=== PATIENT | male | born 1965 | race Caucasian/White ===

== ENCOUNTER → 2017-03-28 | Outpatient (CLI) | payer OTHER ==
[~2017-03-28] MED LIST: NORTRIPTYLINE H10 M2 PO
== END ==
LOC: CAT
DX: I71.2 Thoracic aortic aneurysm, without rupture (principal)

== ENCOUNTER 2017-04-03 05:19 | Inpatient (IN) | payer OTHER ==
[2017-03-28 10:31] LABS: HEMATOCRIT 43.9 % (42.0-52.0); HEMOGLOBIN 15.5 gm/dL (14.0-18.0); MCH 30.4 pg (26.0-34.0); MCHC 35.4 g/dL (28.0-37.0); MCV 85.9 fL (80.0-100.0); RBC 5.11 mil/uL (4.50-6.00); RDW 13.1 % (10.5-14.5); WBC 7.1 thou/uL (4.0-11.0)
[2017-03-28 10:40] LABS: CALCIUM 9.2 mg/dL (8.5-10.1); CREATININE 0.9 mg/dL (0.7-1.3); POTASSIUM 4.1 mmol/L (3.5-5.1)
[2017-03-28 10:42] LABS: URINE BILIRUBIN NEGATIVE (Negative); URINE BLOOD TRACE (Negative); URINE COLOR YELLOW; URINE GLUCOSE-RANDOM* NEGATIVE (Negative); URINE KETONES NEGATIVE (Negative); URINE LEUKOCYTES-REFLEX NEGATIVE (Negative); URINE PROTEIN (DIPSTICK) NEGATIVE (Negative); URINE SPECIFIC GRAVITY <= 1.005 (1.003-1.035); URINE UROBILINOGEN 0.2 E.U./dl (0.2-1.0)
[2017-03-28 10:44] LABS: INR 1.1; PROTIME 11.1 Seconds (9.3-11.4)
[~2017-04-03] VITALS: Ht 160 cm; Wt 74.0 kg
--- NOTE | ~2017-04-03 | O ---
[facility] [place] [address] OPERATIVE REPORT Name: BRITTNEY WILSON Room #: 214-P [facility] IN M.R.#: [id number] Admission: 04/03/17 Attend Phys: Mauro Bradshaw MD Discharge: 04/08/17 Date of : 61 Report #: [id number] THIS REPORT FOR: //name// CC: Ashok Bradshaw DATE OF SERVICE: 04/03/2017 PREOPERATIVE DIAGNOSES: 1. Aortic valve insufficiency, severe, symptomatic. 2. Ascending thoracic aortic aneurysm, aortic root aneurysm. FINAL DIAGNOSES: 1. Aortic valve insufficiency, severe, symptomatic. 2. Ascending thoracic aortic aneurysm, aortic root aneurysm. OPERATIVE PROCEDURES PERFORMED: 1. Aortic root replacement with a 29 mm mechanical valve conduit, utilizing a Bentall technique. 2. Right femoral artery exploration. SURGEON: aMuro Bradshaw MD DIRECTOR OF STRATEGIC ALLIANCES: Mirna Cheney. ANESTHESIA: General. OPERATIVE INDICATIONS: The patient is a 52-year-old male who has presented with dyspnea on exertion. On his evaluation, he was noted to have a murmur and further evaluation showed evidence of severe aortic valve insufficiency. Left heart catheterization demonstrated normal coronaries. CT imaging of his chest demonstrated about 4.5 cm ascending aortic aneurysm that involve the root. The patient is admitted at this time now and brought to the operating room for aortic valve replacement and concomitant repair of his ascending and aortic root aneurysm. OPERATIVE SUMMARY: The patient was brought into the operating room, placed on the OR table in supine position. After anesthesia was induced via the general endotracheal route and monitoring lines had been positioned, the patient was prepped and draped in sterile fashion with chlorhexidine. A median sternotomy incision was made. We opened the pericardium and systemically anticoagulated the patient with heparin. The distal aorta was dissected free from surrounding tissue. We mobilized the pericardium off of the aorta. We found that the aneurysm tapered just before the innominate artery and I felt that we could sew our graft on the distal ascending aorta. I therefore performed an oblique [facility] [address] [place] [address] OPERATIVE REPORT Name: BRITTNEY WILSON Room #: 214-P [facility] IN ..#: [id number] Admission: 04/03/17 Attend Phys: Mauro Bradshaw MD Discharge: 04/08/17 Date of : 61 Report #: [id number] incision in the right groin and dissected downward to expose the right common femoral artery. The patient was given a systemic dose of heparin, placed a 22-Yoruba cannula in the right common femoral artery and connected to the cardiopulmonary bypass line. We then placed a venous cannula in the right atrium. An antegrade cardioplegia needle was placed in the ascending aorta and cardiopulmonary bypass was begun. A retrograde cardioplegic cannula was positioned into the coronary sinus and a left ventricular vent was placed in the right superior pulmonary vein. Under low flow conditions, the aorta was crossclamped and arrest was achieved with retrograde cardioplegia. We opened the aorta and exposed the coronary ostium. We also gave antegrade cardioplegia at this time as well. The ascending aorta was excised. We amputated just proximal to the crossclamp distally. Proximally, we dissected down to the aortic root and dissected the right and left coronary buttons from surrounding tissue. We sized the valve and selected a 29 mm mechanical valve conduit. Sutures of 2-0 pledgeted Ethibond were placed from the aortic to the ventricular side of the annulus circumferentially. These sutures were brought up through the sewing rim of the valve conduit. The valve conduit was seated and the sutures were securely tied. We reinforced this layer with BioGlue. Next, using an eye cautery, we made a hole in the graft for anastomosing the left coronary button. This button was anastomosed with 5-0 Prolene and the site was reinforced with BioGlue. We then measured the graft to the appropriate length, cut it distally and constructed our distal anastomosis of the graft to the ascending aorta distally with 4-0 Prolene as well. The antegrade plegia needle was then reinserted into the graft. Lastly, we chose a spot for the right coronary button, made appropriate graftotomy at this site and then constructed the anastomosis of the right button to the graft with 5-0 Prolene. Upon completion of this, we placed the patient in steep Trendelenburg. We gave warm cardioplegia both retrograde and antegrade and de-aired the heart through the left ventricular apex while holding blood in the heart and ventilating the lungs Under low flow conditions, the aortic crossclamp was released to begin the period of reperfusion and further de-airing maneuvers were further completed. The patient was rewarmed to 37 degree centigrade. Atrial and ventricular pacing wires were placed. Defibrillation was required and the patient returned to a sinus bradycardia of about 60 and we paced him at a rate of 80. Three successive doses of calcium and a single dose of magnesium were given over 3-5 minute intervals. After a suitable period of reperfusion, the lungs were reinflated. The patient was weaned from cardiopulmonary bypass without inotropic support. Protamine was given to reverse the heparin, decannulation was effected. Once satisfactory hemostasis was achieved, we placed two 32-Yoruba chest tubes in the anterior mediastinum and brought them out through separate stab incisions. The sternum was closed with #7 wire. The fascia, subcutaneous and skin were closed in multiple layers with absorbable suture. The procedure was completed. The patient was taken to the CVICU in [facility] [address] [place] [address] OPERATIVE REPORT Name: BRITTNEY WILSON Room #: 214-P [facility] IN M.R.#: [id number] Admission: 04/03/17 Attend Phys: Mauro Bradshaw MD Discharge: 04/08/17 Date of : 61 Report #: [id number] condition. Cardiopulmonary bypass time and crossclamp time are not available to me at the time of this dictation. <ELECTRONICALLY SIGNED> By: Mauro Bradshaw MD 04/13/17 1750 1519 1630 Mauro Bradshaw MD /nt
--- NOTE | ~2017-04-03 | EKG ---
[address] [address] [place] [address] ELECTROCARDIOGRAM REPORT Name: BRITTNEY WILSON Room #: PRE IN [facility]#: [id number] Admission: Attend Phys: Mauro Bradshaw MD Discharge: Date of : 61 Report #: [id number] THIS REPORT FOR: //name// [facility] Test Date: 2017-03-28 Test Time: 10:22:08 Pat Name: BRITTNEY WILSON Department: Room: Gender: [employer] Manager: SAMMIE RHOADES : 1965 Requested By: Mauro Bradshaw Order Number: [id number] MD: Measurements Intervals [place] Rate: 66 P: 69 [place]: 198 QRS: 76 QRSD: 102 T: -57 QT: 410 QTc: 430 Interpretive Statements Sinus rhythm Consider right atrial enlargement Probable LVH with secondary repol abnrm No previous ECG available for comparison [email or web address] By: 1022 1022 Epiphany MD Marion /EPI
--- NOTE | ~2017-04-03 | S ---
[facility] [place] [address] SURGICAL PATH RPT PROCEDURE Name: BRITTNEY PAT Room #: 214-P ADM IN M.R.#: [id number] Admission: 04/03/17 Date of : 61 Discharge: Report #: [id number] Path Case #: [id number] PATHOLOGY REPORT COLLECTION DATE: 04/03/2017 RECEIVED DATE: 04/03/2017 SUBMITTING PHYS: Dr. Mauro Bradshaw OTHER PHYS: Dr. April Dean SPECIMEN(S) RECEIVED: A.Aortic valve leaflets B.Segment of thoracic aorta * * * * * * * * * * * * FINAL DIAGNOSIS: A. Aortic valve leaflets, repair: - Calcific sclerosis along with myxoid changes. B. Aorta, segment of thoracic aorta, repair: - Reactive changes including inflammation, fibrinoid degeration and myxoid degeration. PATHOLOGIST: Vida Menezes M.D. REPORT ELECTRONICALLY SIGNED BY: Vida Menezes M.D. DATE/TIME: 04/05/2017 15:38 * * * * * * * * * * * * GROSS PATHOLOGY: A. The specimen is received in formalin, labeled "Brittney Pat and aortic valve leaflets", are two glistening riddle yellow leaflets 4.1 x 1.8 centimeters and 3.1 x 1.3 cm containing several calcified nodules. Director Of Public Works sections in A1 after decalcification. B. The specimen is received in formalin, labeled "Brittney Prickette and segment of thoracic aorta", are two segments of apparent placental the largest ranging from 1.2 up to 4.0 cm in length and 3.7 cm in in diameter with a 0.2 cm wall and in the other 3.5 x 3.0 with a 0.2 cm wall. The intima shows yellow lipid streak. Director Of Public Works sections in B1. (SWS; 04/03/2017) CLINICAL HISTORY: Aortic valve stenosis INITIAL CPT CODE(S): A; 74691, 50191 B; 26903 Professional services performed by [facility] at [facility] [address] [place] [address] SURGICAL PATH RPT PROCEDURE Name: BRITTNEY PAT Room #: 214-P ADM IN M.R.#: [id number] Admission: 04/03/17 Date of : 61 Discharge: Report #: [id number] Path Case #: [id number] , [place] [address] Technical services performed by [employer] at [address] [place] [address], [address], [place] [address]. [facility] [address] [place] [address] PHONE: [phone] DIRECTOR: Fernandez Vitale M.D. * * * END OF REPORT * * *
--- NOTE | ~2017-04-03 | EKG ---
[address] [address] ELECTROCARDIOGRAM REPORT Name: BRITTNEY WILSON Room #: 239-P ADM IN M.R.#: [id number] Admission: 04/03/17 Attend Phys: Mauro Bradshaw MD Discharge: Date of : 61 Report #: [id number] THIS REPORT FOR: //name// [facility] Test Date: 2017-04-04 Test Time: 06:38:32 Pat Name: BRITTNEY WILSON Department: Room: 239 P Gender: M Greensman: HASEEB : 1965 Requested By: Unique Bledsoe Order Number: [id number] MD: Melvin Smith Measurements Intervals [place] Rate: 69 P: 69 MA: 195 QRS: -13 QRSD: 128 T: 71 QT: 458 QTc: 491 Interpretive Statements Sinus rhythm Left bundle branch block Compared to ECG 03/28/2017 10:22:08 Left bundle branch block is now present Electronically Signed On 04-04-2017 8:17:51 CDT by Melvin Smith [email or web address] <ELECTRONICALLY SIGNED> By: Melvin Smith MD, [facility] 04/04/1717 7 7 Melvin Smith MD, [facility] /EPI
[2017-04-03 07:34] VITALS: BP 147/80
[2017-04-03 12:17] LABS: HEMATOCRIT 32.1 % (42.0-52.0); HEMOGLOBIN 11.3 gm/dL (14.0-18.0); MCH 30.5 pg (26.0-34.0); MCV 87.2 fL (80.0-100.0); RBC 3.69 mil/uL (4.50-6.00); RDW 13.1 % (10.5-14.5); WBC 17.1 thou/uL (4.0-11.0)
[2017-04-03 12:31] LABS: APTT 26.1 Seconds (24.5-32.8); FIBRINOGEN 119.1 mg/dL (210-360); INR 1.5; PROTIME 15.2 Seconds (9.3-11.4)
[2017-04-03 13:17] LABS: POC BE -4 mmol/L (-2.0 to +3.0); POC CA IONIZED 4.2 mg/dL (4.5-5.3); POC FiO2 70 %; POC GLUCOSE 132 mg/dL (70-99); POC HEMOGLOBIN 11.9 g/dL (14.0-18.0); POC POTASSIUM 5.7 mmol/L (3.5-5.1); POC SODIUM 132 mmol/L (136-145); POC pCO2 36.2 mmHg (35.0-45.0); POC pH 7.371 (7.360-7.450)
[2017-04-03 13:17] LABS: POC BE -1 mmol/L (-2.0 to +3.0); POC CA IONIZED 4.8 mg/dL (4.5-5.3); POC FiO2 100 %; POC GLUCOSE 129 mg/dL (70-99); POC HCO3 23.7 mmol/L (22.0-26.0); POC HEMOGLOBIN 12.9 g/dL (14.0-18.0); POC POTASSIUM 5.3 mmol/L (3.5-5.1); POC SODIUM 135 mmol/L (136-145); POC pCO2 37.2 mmHg (35.0-45.0); POC pH 7.413 (7.360-7.450)
[2017-04-03 13:17] LABS: POC BE 0 mmol/L (-2.0 to +3.0); POC CA IONIZED 4.8 mg/dL (4.5-5.3); POC FiO2 100 %; POC GLUCOSE 166 mg/dL (70-99); POC HCO3 25.2 mmol/L (22.0-26.0); POC HEMOGLOBIN 12.9 g/dL (14.0-18.0); POC POTASSIUM 5.7 mmol/L (3.5-5.1); POC SODIUM 135 mmol/L (136-145); POC pCO2 44.8 mmHg (35.0-45.0); POC pH 7.358 (7.360-7.450)
[2017-04-03 13:17] LABS: POC BE -5 mmol/L (-2.0 to +3.0); POC CA IONIZED 4.1 mg/dL (4.5-5.3); POC FiO2 100 %; POC GLUCOSE 140 mg/dL (70-99); POC HCO3 21.3 mmol/L (22.0-26.0); POC HEMOGLOBIN 11.2 g/dL (14.0-18.0); POC SODIUM 132 mmol/L (136-145); POC pCO2 41.5 mmHg (35.0-45.0); POC pH 7.319 (7.360-7.450)
[2017-04-03 13:17] LABS: POC BE -1 mmol/L (-2.0 to +3.0); POC CA IONIZED 4.1 mg/dL (4.5-5.3); POC FiO2 100 %; POC GLUCOSE 142 mg/dL (70-99); POC HCO3 24.5 mmol/L (22.0-26.0); POC HEMOGLOBIN 10.9 g/dL (14.0-18.0); POC POTASSIUM 5.9 mmol/L (3.5-5.1); POC SODIUM 131 mmol/L (136-145); POC pCO2 46.5 mmHg (35.0-45.0); POC pH 7.329 (7.360-7.450)
[2017-04-03 13:17] LABS: POC BE 1 mmol/L (-2.0 to +3.0); POC CA IONIZED 3.9 mg/dL (4.5-5.3); POC FiO2 100 %; POC GLUCOSE 113 mg/dL (70-99); POC HEMOGLOBIN 10.5 g/dL (14.0-18.0); POC POTASSIUM 5.3 mmol/L (3.5-5.1); POC SODIUM 131 mmol/L (136-145); POC pCO2 41.2 mmHg (35.0-45.0); POC pH 7.408 (7.360-7.450)
[2017-04-03 13:17] LABS: POC BE -1 mmol/L (-2.0 to +3.0); POC CA IONIZED 4.2 mg/dL (4.5-5.3); POC FiO2 80 %; POC GLUCOSE 146 mg/dL (70-99); POC HCO3 24.5 mmol/L (22.0-26.0); POC HEMOGLOBIN 11.9 g/dL (14.0-18.0); POC POTASSIUM 6.2 mmol/L (3.5-5.1); POC SODIUM 133 mmol/L (136-145); POC pCO2 45.3 mmHg (35.0-45.0)
[2017-04-03 13:22] LABS: POC BE -2 mmol/L (-2.0 to +3.0); POC CA IONIZED > 8.9 mg/dL (4.5-5.3); POC FiO2 100 %; POC GLUCOSE 122 mg/dL (70-99); POC HCO3 22.9 mmol/L (22.0-26.0); POC HEMOGLOBIN 9.9 g/dL (14.0-18.0); POC POTASSIUM 4.7 mmol/L (3.5-5.1); POC SODIUM 126 mmol/L (136-145); POC pCO2 38.1 mmHg (35.0-45.0); POC pH 7.388 (7.360-7.450)
[2017-04-03 13:22] LABS: POC BE -1 mmol/L (-2.0 to +3.0); POC CA IONIZED 4.2 mg/dL (4.5-5.3); POC FiO2 80 %; POC GLUCOSE 148 mg/dL (70-99); POC HCO3 24.9 mmol/L (22.0-26.0); POC HEMOGLOBIN 10.9 g/dL (14.0-18.0); POC POTASSIUM 6.7 mmol/L (3.5-5.1); POC SODIUM 133 mmol/L (136-145); POC pCO2 45.6 mmHg (35.0-45.0); POC pH 7.345 (7.360-7.450)
[2017-04-03 13:22] LABS: POC BE -2 mmol/L (-2.0 to +3.0); POC CA IONIZED 6.3 mg/dL (4.5-5.3); POC FiO2 100 %; POC GLUCOSE 134 mg/dL (70-99); POC HCO3 22.9 mmol/L (22.0-26.0); POC HEMOGLOBIN 11.2 g/dL (14.0-18.0); POC POTASSIUM 3.9 mmol/L (3.5-5.1); POC SODIUM 136 mmol/L (136-145); POC pCO2 35.5 mmHg (35.0-45.0); POC pH 7.417 (7.360-7.450)
[2017-04-03 13:22] LABS: POC BE -4 mmol/L (-2.0 to +3.0); POC CA IONIZED 8.4 mg/dL (4.5-5.3); POC FiO2 100 %; POC GLUCOSE 127 mg/dL (70-99); POC HCO3 22.4 mmol/L (22.0-26.0); POC HEMOGLOBIN 10.2 g/dL (14.0-18.0); POC POTASSIUM 4.4 mmol/L (3.5-5.1); POC SODIUM 130 mmol/L (136-145); POC pCO2 43.3 mmHg (35.0-45.0); POC pH 7.321 (7.360-7.450)
[2017-04-03 13:39] LABS: ABG SAMPLE TYPE ARTERIAL; HCO3 21.8 mmol/L (22.0-26.0); LACTATE 2.08 mmol/L (0.5-2.0); O2(CT) 20.2 mL/dL (15.0-23.0); O2Hb 96.6 % (92.0-98.0); PCO2 42.5 mmHg (35.0-45.0); sO2 97.9 % (92.0-98.0); tCO2 23.1 mmol/L (24.0-30.0)
[2017-04-03 13:40] LABS: STICK SITE LINE; TIDAL VOLUME 500 ml; pH 7.328 (7.360-7.450)
[2017-04-03 13:42] VITALS: BP 127/72
[2017-04-03 13:52] LABS: HEMATOCRIT 39.8 % (42.0-52.0); MCH 29.9 pg (26.0-34.0); MCV 85.5 fL (80.0-100.0); RBC 4.65 mil/uL (4.50-6.00); RDW 13.4 % (10.5-14.5); WBC 15.2 thou/uL (4.0-11.0)
[2017-04-03 13:54] LABS: HEMOGLOBIN 13.9 gm/dL (14.0-18.0)
[2017-04-03 14:01] LABS: CALCIUM 11.5 mg/dL (8.5-10.1); CREATININE 1.3 mg/dL (0.7-1.3); MAGNESIUM 2.9 mg/dL (1.8-2.4)
[2017-04-03 14:40] LABS: APTT 29.4 Seconds (24.5-32.8); INR 1.2; PROTIME 12.5 Seconds (9.3-11.4)
[2017-04-03 15:48] LABS: ABG SAMPLE TYPE ARTERIAL; BE(vivo) -5.3 mmol/L (-2 to +3); HCO3 20.2 mmol/L (22.0-26.0); LACTATE 3.11 mmol/L (0.5-2.0); O2(CT) 21.1 mL/dL (15.0-23.0); O2Hb 96.8 % (92.0-98.0); PCO2 39.1 mmHg (35.0-45.0); PO2 111.3 mmHg (80.0-100.0); sO2 97.8 % (92.0-98.0); tCO2 21.4 mmol/L (24.0-30.0)
[2017-04-03 15:49] LABS: ABG COMMENT CPAP TRIAL.; Pressure Support 6 cm H20; STICK SITE ALINE
[2017-04-03 16:52] LABS: ABG SAMPLE TYPE ARTERIAL; BE(vivo) -7.8 mmol/L (-2 to +3); HCO3 16.9 mmol/L (22.0-26.0); O2(CT) 20.8 mL/dL (15.0-23.0); O2Hb 95.3 % (92.0-98.0); PO2 95.6 mmHg (80.0-100.0); sO2 96.9 % (92.0-98.0); tCO2 17.9 mmol/L (24.0-30.0)
[2017-04-03 16:53] LABS: LACTATE 4.27 mmol/L (0.5-2.0); STICK SITE ALINE; pH 7.328 (7.360-7.450)
[2017-04-03 20:54] LABS: HEMATOCRIT 43.2 % (42.0-52.0); HEMOGLOBIN 14.9 gm/dL (14.0-18.0); MCHC 34.5 g/dL (28.0-37.0); PLATELET COUNT 188 thou/uL (150-400); RBC 4.97 mil/uL (4.50-6.00); RDW 13.5 % (10.5-14.5); WBC 21.3 thou/uL (4.0-11.0)
[2017-04-03 20:55] LABS: MANUAL DIFF YES
[2017-04-03 21:02] LABS: CALCIUM 10.9 mg/dL (8.5-10.1); CREATININE 1.6 mg/dL (0.7-1.3); POTASSIUM 3.2 mmol/L (3.5-5.1)
[2017-04-03 21:08] LABS: FIBRINOGEN 180.9 mg/dL (210-360); INR 1.1; PROTIME 11.4 Seconds (9.3-11.4)
[2017-04-03 21:20] LABS: TOTAL CELL COUNT 100
[2017-04-03 21:21] LABS: ABSOLUTE NEUTROPHILS 19.4 thou/uL (1.4-8.2)
[2017-04-04 03:48] LABS: HEMATOCRIT 39.1 % (42.0-52.0); HEMOGLOBIN 13.5 gm/dL (14.0-18.0); MCHC 34.5 g/dL (28.0-37.0); MCV 86.8 fL (80.0-100.0); RBC 4.5 mil/uL (4.50-6.00); RDW 13.6 % (10.5-14.5); WBC 23.5 thou/uL (4.0-11.0)
[2017-04-04 03:56] LABS: CALCIUM 9.9 mg/dL (8.5-10.1); CREATININE 1.7 mg/dL (0.7-1.3); MAGNESIUM 2.5 mg/dL (1.8-2.4)
[2017-04-04 03:59] LABS: POTASSIUM 4.5 mmol/L (3.5-5.1)
[2017-04-04 05:20] LABS: ABG SAMPLE TYPE ARTERIAL; BE(vivo) -6.7 mmol/L (-2 to +3); LACTATE 2.38 mmol/L (0.5-2.0); O2(CT) 17.6 mL/dL (15.0-23.0); O2Hb 91.3 % (92.0-98.0); PCO2 33.8 mmHg (35.0-45.0); PO2 63.5 mmHg (80.0-100.0); pH 7.345 (7.360-7.450); sO2 91.4 % (92.0-98.0); tCO2 19.1 mmol/L (24.0-30.0)
[2017-04-04 05:21] LABS: STICK SITE LINE
[2017-04-04 14:46] VITALS: BP 144/88
[2017-04-04 19:58] VITALS: BP 150/90
[2017-04-05 04:53] LABS: HEMATOCRIT 33.7 % (42.0-52.0); MCH 30.1 pg (26.0-34.0); MCHC 33.9 g/dL (28.0-37.0); MCV 88.8 fL (80.0-100.0); RBC 3.79 mil/uL (4.50-6.00); RDW 13.8 % (10.5-14.5)
[2017-04-05 04:55] VITALS: BP 135/89
[2017-04-05 04:56] LABS: HEMOGLOBIN 11.4 gm/dL (14.0-18.0)
[2017-04-05 05:05] LABS: CALCIUM 8.8 mg/dL (8.5-10.1); CREATININE 1.3 mg/dL (0.7-1.3); POTASSIUM 5.3 mmol/L (3.5-5.1)
[2017-04-05 05:07] LABS: PROTIME 18.3 Seconds (9.3-11.4)
[2017-04-05 05:11] LABS: INR 1.8
[2017-04-05 07:44] VITALS: BP 157/94
[2017-04-05 11:06] VITALS: BP 149/90
[2017-04-05 15:20] VITALS: BP 135/90
[2017-04-05 20:05] VITALS: BP 116/74
[2017-04-06 04:02] LABS: INR 2.6; PROTIME 25.8 Seconds (9.3-11.4)
[2017-04-06 04:07] VITALS: BP 127/77
[2017-04-06 10:45] LABS: CALCIUM 8.7 mg/dL (8.5-10.1); CREATININE 1.4 mg/dL (0.7-1.3); POTASSIUM 5.4 mmol/L (3.5-5.1)
[2017-04-06 19:45] VITALS: BP 120/75
[2017-04-07 04:05] VITALS: BP 114/70
[2017-04-07 04:29] LABS: HEMOGLOBIN 11.5 gm/dL (14.0-18.0); MCH 30.6 pg (26.0-34.0); MCHC 34.9 g/dL (28.0-37.0); MCV 87.6 fL (80.0-100.0); RBC 3.77 mil/uL (4.50-6.00); RDW 13.4 % (10.5-14.5); WBC 14.2 thou/uL (4.0-11.0)
[2017-04-07 04:42] LABS: CALCIUM 8.8 mg/dL (8.5-10.1); CREATININE 1.2 mg/dL (0.7-1.3); POTASSIUM 4.8 mmol/L (3.5-5.1)
[2017-04-07 04:50] LABS: INR 2.8; PROTIME 26.7 Seconds (9.3-11.4)
[2017-04-07 07:25] VITALS: BP 117/69
[2017-04-07 11:25] VITALS: BP 96/55
[2017-04-07] MEDS ORDERED: LOPRESSOR25 PO (12:23)
[2017-04-07] MEDS ORDERED: COUMADIN 1MG TAB1 M1 PO (12:23)
[2017-04-07] MEDS ORDERED: COZAAR 25 MG TA25 MG PO (12:23)
[2017-04-07] MEDS ORDERED: ULTRACET TABLET1 TAB PO (12:34)
[2017-04-07 16:10] VITALS: BP 118/73
[2017-04-07 19:54] VITALS: BP 111/70
[2017-04-08 03:38] LABS: PROTIME 20.2 Seconds (9.3-11.4)
[2017-04-08 04:15] VITALS: BP 100/70
[2017-04-08 07:25] VITALS: BP 11/71
[2017-04-08 11:30] VITALS: BP 112/73
[2017-04-08 13:27] VITALS: BP 112/73
[2017-04-08 13:44] VITALS: BP 112/73
== END 2017-04-08 13:57 | disposition home or self-care (01) | DRG 220 ==
LOC: ICU 05:19 → TBA 05:19 → PRE 05:27 → ICU 13:54 → PRE 15:27 → 2N 04-04 14:30
PROVIDERS: Nurse Practitioner; Nurse Practitioner Gerontology; Thoracic Surgery (Cardiothoracic Vascular Surgery)
PROC: 02RF0JZ Replacement of Aortic Valve with Synthetic Substitute, Open Approach (ICD-10-PCS; principal; 2017-04-03)
PROC: 02VX3DZ Restriction of Thoracic Aorta, Ascending/Arch with Intraluminal Device, Percutaneous Approach (ICD-10-PCS; 2017-04-03)
DX: I35.1 Nonrheumatic aortic (valve) insufficiency (principal); N17.9 Acute kidney failure, unspecified; J98.11 Atelectasis; D62 Acute posthemorrhagic anemia; I71.2 Thoracic aortic aneurysm, without rupture; I10 Essential (primary) hypertension; E78.5 Hyperlipidemia, unspecified; G43.909 Migraine, unspecified, not intractable, without status migrainosus; E87.5 Hyperkalemia; Z28.21 Immunization not carried out because of patient refusal; Z88.8 Allergy status to other drugs, medicaments and biological substances
CPT/HCPCS: 10078; 10081; 47000; 47001; 47002; 47297; 47335; 48888; 50010; 50172; 50409; 50456; 50497; 51078; 51089; 51301; 51932; 51965; 52088; 52131; 52314; 53327; 53358; 56524; 56525; 56526; 56527; 56528; 56529; 56531; 56533; 56660; 57093; 62110; 62950

== ENCOUNTER → 2017-05-03 | Outpatient (CLI) | payer OTHER ==
[~2017-05-03] MED LIST changes: +COUMADIN 1MG TAB1 M1 PO; +COZAAR 25 MG TA25 MG PO; +LOPRESSOR25 PO; +ULTRACET TABLET1 TAB PO
== END ==
LOC: RAD 08:02
DX: J90 Pleural effusion, not elsewhere classified (principal); J98.11 Atelectasis; Z95.1 Presence of aortocoronary bypass graft

== ENCOUNTER → 2017-12-25 | Outpatient (CLI) | payer OTHER ==
--- NOTE | ~2017-12-25 | 2DMMODE ---
[facility] [place] [employer] [address] 2 D/M-MODE ECHOCARDIOGRAM Name: BRITTNEY WILSON Room #: [facility]#: [id number] Admission: 12/25/17 Attend Phys: Ashok Aldrich Discharge: Date of : 61 Date of Service: 12/26/17 [facility] Report #: [id number] THIS REPORT FOR: //name// APPROVED REPORT Study performed: 12/25/2017 13:26:48 EXAM: Comprehensive 2D, Doppler, and color-flow Echocardiogram Patient Location: Out-Patient Status: routine BSA: 1.70 HR: 84 bpm BP: 130/80 mmHg Other Information Study Quality: Good Indications Short of breath. Hx: aortic valve replacement. 2D Dimensions RVDd: 46.68 mm LVEF(%): 23.08 (>50%) IVSd: 9.68 (7-11mm) LVOT Diam: 22.31 (18-24mm) LVDd: 64.42 mm PWd: 10.87 (7-11mm) Ascending Ao: 36.85 (22-36mm) LVDs: 57.42 (25-40mm) Aortic Root: 33.42 mm Ang's LVEF: 23.08 % Volumes Left Atrial Volume (Systole) Single Plane 4CH: 96.14 mL Single Plane 2CH: 86.00 mL LA ESV Index: 56.00 mL/m2 Aortic Valve AoV Peak Tima.: 1.32 m/s AO Peak Gr.: 6.97 mmHg LVOT Max P.41 mmHg AO Mean Gr.: 3.76 mmHg AO V2 Mean: 0.93 m/s LVOT Max V: 0.59 m/s AO V2 VTI: 20.89 cm VARGHESE Vmax: 1.76 cm2 Mitral Valve E/A Ratio: 1.1 [facility] [place] [address] 2 D/M-MODE ECHOCARDIOGRAM Name: BRITTNEY WILSON Room #: [facility] Annia#: [id number] Admission: 12/25/17 Attend Phys: Ashok Aldrich Discharge: Date of : 61 Date of Service: 12/26/17 [facility] Report #: [id number] MV Decel. Time: 114.99 ms MV E Max Tima.: 1.25 m/s MV A Tima.: 1.10 m/s MV PHT: 33.35 ms Pulmonary Valve PV Peak Tima.: 0.86 m/s PV Peak Gr.: 2.95 mmHg Pulmonary Vein P Vein S: 0.34 m/s P Vein D: 0.72 m/s P Vein S/D Ratio: 0.47 Tricuspid Valve TR Peak Tima.: 2.76 m/s RAP Estimate: 10.00 mmHg TR Peak Gr.: 30.43 mmHg PA Pressure: 40.00 mmHg Left Ventricle Left ventricle is moderately dilated. There is normal left ventricular wall thickness. Left ventricular systolic function is severely decreased. LVEF is 20%. This study is not technically sufficient to allow evaluation of the LV diastolic function. Right Ventricle Right ventricle is dilated. Right ventricle is moderately hypokinetic. Atria Left atrium is moderately dilated. Right atrium is mildly dilated. Aortic Valve Mechanical aortic valve is present; 29mm. Prosthetic aortic valve opening appears normal. Trace aortic regurgitation. Mitral Valve The mitral valve is normal in structure. Mild mitral regurgitation. Tricuspid Valve The tricuspid valve is normal in structure. Mild to moderate tricuspid regurgitation. Mild to moderate pulmonary hypertension with an estimated PAP of 40mmHg. Pulmonic Valve [facility] [address] [place] [address] 2 D/M-MODE ECHOCARDIOGRAM Name: BRITTNEY WILSON Room #: REG [facility]#: [id number] Admission: 12/25/17 Attend Phys: Ashok Aldrich Discharge: Date of : 61 Date of Service: 12/26/17 1100 Report #: [id number] The pulmonary valve is normal in structure. Trace pulmonic regurgitation. Great Vessels The aortic root is normal in size. Aortic root conduit graft is present. IVC is dilated and collapses <50% with inspiration. Pericardium There is no pericardial effusion. <Conclusion> Left ventricle is moderately dilated. LVEF is 20%. Right ventricle is dilated. Right ventricle is moderately hypokinetic. Left atrium is moderately dilated. Right atrium is mildly dilated. Mechanical aortic valve is present; 29mm. Prosthetic aortic valve opening appears normal. Trace aortic regurgitation. The mitral valve is normal in structure. Mild mitral regurgitation. The tricuspid valve is normal in structure. Mild to moderate tricuspid regurgitation. Mild to moderate pulmonary hypertension with an estimated PAP of 40mmHg. The pulmonary valve is normal in structure. Trace pulmonic regurgitation. There is no pericardial effusion. <ELECTRONICALLY SIGNED> By: Ashok Tran MD 12/26/17 1100 1100 1100 Ashok Tran MD /INF
== END ==
LOC: CV 11:57 → RAD 12:17
DX: I08.1 Rheumatic disorders of both mitral and tricuspid valves (principal); I27.20 Pulmonary hypertension, unspecified